=== PATIENT | male | born 1945 | race African-American/Black ===

== ENCOUNTER 2020-07-24 12:17 | Emergency (ER) | payer SELFPAY ==
[~2020-07-24] VITALS: Ht 177.8 cm; Wt 113.0 kg
[2020-07-24] MEDS ORDERED: NOREPINEPHRINE 8MG/250ML PMX 250 ML IV ONE ×2 (12:46→13:00)
[2020-07-24 12:57] VITALS: BP 69/45
[2020-07-24] MEDS ORDERED: SODIUM CHLORIDE 0.9% 1,000 ML IV ONE (12:58)
[2020-07-24] MEDS ORDERED: VECURONIUM BROMIDE 10 MG/VIAL IV ONE (13:00)
[2020-07-24] MEDS ORDERED: ASPIRIN 600MG SUPP PR ONE (13:00)
[2020-07-24] MEDS ORDERED: EPINEPHRINE 0.1MG/ML (1:10,000) 10ML SYR IV ONE ×4 (13:00→13:30)
[2020-07-24 13:14] LABS: BASOPHILS % 0.6 % (0.0-2.0); EOSINOPHILS % 1.3 % (0.0-5.0); HEMATOCRIT. 43.2 % (42.0-52.0); HEMOGLOBIN. 13.4 g/dL (14.0-18.0); LYMPHOCYTES % 56.2 % (20.0-50.0); MEAN CORPUSCULAR HEMOGLOBIN 26.3 pg (28.0-32.0); MEAN CORPUSCULAR VOLUME 84.6 fL (80.0-94.0); MEAN PLATELET VOLUME 9.4 fl (7.4-10.4); NEUTROPHILS % 34.9 % (40.0-76.0); PLATELET 128 x1000/uL (130-400); RED CELL DISTRIBUTION WIDTH 15.7 % (11.6-14.6)
[2020-07-24 13:25] LABS: INR 1.2; PROTHROMBIN TIME 12.1 sec (9.6-11.0)
[2020-07-24 13:27] LABS: CHLORIDE 110 mEq/L (98-107)
[2020-07-24] MEDS ORDERED: DOPAMINE 400MG/250ML PREMIX 250 ML IV ONE ×2 (13:27→13:30)
[2020-07-24] MEDS ORDERED: EPINEPHRINE 0.1MG/ML (1:10,000) 10ML SYR ONE (13:40)
== END 2020-07-24 13:50 | disposition expired ==
LOC: ER 12:47
DX: I46.9 Cardiac arrest, cause unspecified (principal)
CPT/HCPCS: 31500; 36415; 80053; 83605; 83880; 84484; 85025; 85610; 93005; 94002; 94660; 99291; J1265; J3490; J7030; Z7610